=== PATIENT | male | born 1965 | race Caucasian/White ===

== ENCOUNTER 2020-05-04 06:51 | Emergency (ER) | payer MEDICAID ==
[~2020-05-04] VITALS: Ht 165.1 cm; Wt 79.0 kg
[2020-05-04 08:05] LABS: BASOPHILS % 0.7 % (0.0-2.0); EOSINOPHILS % 5.8 % (0.0-5.0); HEMATOCRIT. 40.5 % (42.0-52.0); HEMOGLOBIN. 13.5 g/dL (14.0-18.0); LYMPHOCYTES % 45.1 % (20.0-50.0); MEAN CORPUSCULAR HEMOGLOBIN 28.1 pg (28.0-32.0); MEAN CORPUSCULAR VOLUME 84.1 fL (80.0-94.0); MEAN PLATELET VOLUME 8.9 fl (7.4-10.4); NEUTROPHILS % 39.4 % (40.0-76.0); PLATELET 172 x1000/uL (130-400); RED BLOOD CELL COUNT 4.81 mill/uL (4.7-6.1); RED CELL DISTRIBUTION WIDTH 14.1 % (11.6-14.6)
[2020-05-04 08:12] LABS: CHLORIDE 109 mEq/L (98-107)
[2020-05-04 08:15] LABS: ETHANOL BLOOD < 10 mg/dL
[2020-05-04] MEDS ORDERED: IBUPROFEN 800MG TABLET PO ONE (09:45)
[2020-05-04 10:00] VITALS: BP 166/96
== END 2020-05-04 10:00 | disposition home or self-care (01) ==
LOC: ER 06:51
DX: B02.9 Zoster without complications (principal); I10 Essential (primary) hypertension
CPT/HCPCS: 36415; 80053; 80320; 83880; 84484; 85025; 93005; 99284; G0480

== ENCOUNTER 2022-04-27 17:24 | Emergency (ER) | payer MEDICAID, MEDICARE ==
[~2022-04-27] VITALS: Ht 165.1 cm; Wt 78.0 kg
[2022-04-27 17:44] VITALS: BP 149/79
[2022-04-27] MEDS ORDERED: ACETAMINOPHEN 500MG TABLET PO ONE (22:15)
== END 2022-04-27 23:26 | disposition home or self-care (01) ==
LOC: ER 17:47
DX: S00.01XA Abrasion of scalp, initial encounter (principal); S80.212A Abrasion, left knee, initial encounter; W18.39XA Other fall on same level, initial encounter; Y93.89 Activity, other specified; Y92.89 Other specified places as the place of occurrence of the external cause; Y99.8 Other external cause status
CPT/HCPCS: 70450; 73564; 99284; Z7610